=== PATIENT | male | born 1990 | race Caucasian/White ===

== ENCOUNTER 2023-10-12 22:31 | Emergency (ER) | payer MEDICAID ==
[~2023-10-12] VITALS: Ht 185.4 cm; Wt 63.6 kg
[~2023-10-12 22:31] MED LIST: HYDR-4383 PO
[2023-10-12 23:04] VITALS: BP 142/68; PULSE 88; RESP 18; TEMP 98.5; O2SAT 99
[2023-10-12] MEDS: TETanus/Pertussis (Acell)/Diphther VAC/PF (Tdap-Adult) 0.5ml syringe IMVAC ONE (23:51)
[2023-10-12] MEDS: LIDOcaine 1% 30ml preserv. free vial IJ STA (23:53)
== END 2023-10-13 00:12 | disposition home or self-care (01) ==
LOC: ER 22:32
DX: S61.210A Laceration without foreign body of right index finger without damage to nail, initial encounter (principal); J45.909 Unspecified asthma, uncomplicated; Z88.0 Allergy status to penicillin; Z88.5 Allergy status to narcotic agent; Z79.899 Other long term (current) drug therapy; W26.0XXA Contact with knife, initial encounter; Y93.89 Activity, other specified; Y92.89 Other specified places as the place of occurrence of the external cause; Y99.8 Other external cause status
CPT/HCPCS: 12001; 90471; 90715; 99283; A6449